=== PATIENT | female | born 1980 | race American Indian/Alaskan Native ===

== ENCOUNTER 2020-09-22 09:56 | Outpatient (REF) | payer OTHER, SELFPAY ==
--- NOTE | 2020-09-22 | MM_ITS ---
EXAMINATION: MM SCREENING DIGITAL BREAST TOMOSYNTHESIS, BILATERAL CLINICAL INFORMATION: Screening. Asymptomatic. The lifetime risk of breast cancer based on the Tyrer-Cuzick Model is 9%. COMPARISON: Mammography: 05/03/19 TECHNIQUE: Digital breast tomosynthesis is performed in both the craniocaudal and mediolateral oblique views along with computer-aided detection (CAD). Synthesized 2D images are generated from the tomosynthesis. FINDINGS: The breasts are heterogeneously dense, which may obscure small masses (ACR BI-RADS breast composition Category c). Right breast: There is an unchanged circumscribed 0.5 cm oval mass in the medial right breast likely the 3:00 position. There is unchanged global asymmetry in the central right breast middle depth. No suspicious right breast finding. Left breast: No suspicious mass. No architectural distortion. No suspicious calcification MM/MM tomosynthesis screening BI IMPRESSION: No mammographic evidence of malignancy. ASSESSMENT: BI-RADS 2: Benign RECOMMENDATION: Routine annual mammography screening. This patient's information was entered into a reminder system with a target due date for their next mammogram.
== END 2020-09-22 09:57 | disposition home or self-care (01) ==
LOC: HO.MAMMO 09:56
PROVIDERS: PCP Internal Medicine; Visit Provider Internal Medicine
DX: Z12.31 Encounter for screening mammogram for malignant neoplasm of breast (principal)
CPT/HCPCS: 77063; 77067

== ENCOUNTER 2021-10-26 11:03 | Outpatient (REF) | payer OTHER, SELFPAY ==
--- NOTE | ~2021-10-26 | MM_ITS ---
EXAMINATION: MM SCREENING DIGITAL BREAST TOMOSYNTHESIS, BILATERAL CLINICAL INFORMATION: Screening. Asymptomatic. The lifetime risk of breast cancer based on the Tyrer-Cuzick Model is 9%. COMPARISON: Mammography: 09/22/2020, 05/03/2019 (baseline) TECHNIQUE: Digital breast tomosynthesis is performed in both the craniocaudal and mediolateral oblique views along with computer-aided detection (CAD). Synthesized 2D images are generated from the tomosynthesis. FINDINGS: There are scattered areas of fibroglandular density (ACR BI-RADS breast composition Category b). There are no significant masses, abnormal calcifications, or other abnormalities. Parenchymal pattern is similar to prior studies. There is no developing density or architectural abnormality. The axilla and skin contours are unremarkable. No significant changes. MM/MM tomosynthesis screening BI IMPRESSION: No mammographic evidence of malignancy. ASSESSMENT: BI-RADS 1: Negative RECOMMENDATION: Routine annual mammography screening. This patient's information was entered into a reminder system with a target due date for their next mammogram.
== END 2021-10-26 11:04 | disposition home or self-care (01) ==
LOC: HO.MAMMO 11:03
PROVIDERS: Visit Provider Internal Medicine
DX: Z12.31 Encounter for screening mammogram for malignant neoplasm of breast (principal)
CPT/HCPCS: 77063; 77067

== ENCOUNTER 2022-06-21 10:53 | Outpatient (REF) | payer OTHER, SELFPAY ==
[2022-06-21 13:37] LABS: MANUAL DIFF FLAG NO
[2022-06-21 13:41] LABS: Basophils Absolute Auto 0.1 X10*3/uL (0.0-0.2); Basophils Percent Auto 0.7 % (0-2); Eosinophils Absolute Auto 0.3 X10*3/uL (0.0-0.4); Eosinophils Percent Auto 3.5 % (0-4); Hematocrit 32.1 % (37.0-47.0); Hemoglobin 9.9 g/dl (12.0-16.0); Imm Gran Abs Auto 0.02 X10*3/uL (0.00-0.03); Imm Gran Pct Auto 0.2 % (0.0-0.4); Lymphocytes Percent Auto 23.4 % (20-40); Mean Corpuscular HGB Conc 30.8 g/dl (31.0-35.0); Mean Corpuscular Hemoglobin 22.7 pg (27.0-33.0); Mean Corpuscular Volume 73.5 fL (80.0-98.0); Mean Platelet Volume 10.4 fL (9.4-12.3); Monocytes Absolute Auto 0.5 X10*3/uL (0.1-1.2); Monocytes Percent Auto 5.3 % (2-11); Neutrophils Absolute Auto 5.8 x10*3/uL (2.0-8.3); Neutrophils Percent Auto 66.9 % (45-73); Platelet Count 354 X10*3/uL (160-400); Red Blood Count 4.37 X10*6/uL (4.20-5.50); Red Cell Distribution Width 16.1 % (11.0-16.0); White Blood Count 8.7 X10*3/uL (4.8-10.8)
[2022-06-21 13:54] LABS: Alanine Aminotransferase 11 U/L (0-31); Albumin Level 4.2 g/dL (3.5-5.0); Alkaline Phosphatase 64 U/L (39-117); Anion Gap 15 (12-20); Aspartate Amino Transferase 11 U/L (5-31); Bilirubin Total < 0.2 mg/dL (0.0-1.0); Blood Urea Nitrogen 9 mg/dL (9-16); Calcium 9.2 mg/dL (8.4-10.2); Carbon Dioxide 24 mmol/L (22-29); Chloride 103 mmol/L (96-108); Estimated Glomerular Filt Rate > 60; Glucose Random 158 mg/dL (60-115); Potassium 4.4 mmol/L (3.3-5.1); Sodium 138 mmol/L (135-145); Total Protein 7.4 g/dL (6.5-8.0)
[2022-06-21 14:02] LABS: Creatinine Urine 21.49 mg/dL; Microalbumin Urine < 5.0 mg/L
[2022-06-21 14:07] LABS: Estimated Average Glucose 137 mg/dL; Hemoglobin A1c % 6.4 %
[2022-06-21 14:15] LABS: Ferritin 3 ng/mL (10-250); Thyroid Stimulating Hormone 1.18 uIU/mL (0.32-4.0); Vitamin D 25-OH Total 10.5 ng/mL (>30)
[2022-06-21 14:48] LABS: Vitamin B12 499 pg/mL (200-900)
[2022-06-22 12:47] LABS: Gliadin Deamidated IgA Ab 1.8 U/mL; Gliadin Deamidated IgG Ab <1.0 U/mL; Transglutaminase Ab IgG <1.0 U/mL; Transglutaminase IgA <1.0 U/mL
[2022-06-22 14:46] LABS: Immunoglobulin A 287 mg/dL (47-310)
[2022-06-28 15:17] LABS: Endomysial IgA Antibody Negative (Negative)
== END 2022-06-21 10:54 | disposition home or self-care (01) ==
LOC: HO.10HDL 10:53
PROVIDERS: Visit Provider Internal Medicine
DX: D50.8 Other iron deficiency anemias (principal); E11.9 Type 2 diabetes mellitus without complications; E78.2 Mixed hyperlipidemia; R21 Rash and other nonspecific skin eruption
CPT/HCPCS: 36415; 80053; 82043; 82306; 82607; 82728; 82784; 83036; 84443; 85025; 86231; 86258; 86364

== ENCOUNTER 2022-10-13 12:23 | Outpatient (REF) | payer OTHER, SELFPAY ==
[2022-10-13 13:51] LABS: MANUAL DIFF FLAG NO
[2022-10-13 13:58] LABS: Basophils Percent Auto 0.4 % (0-2); Eosinophils Absolute Auto 0.2 X10*3/uL (0.0-0.4); Eosinophils Percent Auto 2.2 % (0-4); Hematocrit 30.9 % (37.0-47.0); Hemoglobin 9.4 g/dl (12.0-16.0); Imm Gran Abs Auto 0.02 X10*3/uL (0.00-0.03); Imm Gran Pct Auto 0.2 % (0.0-0.4); Lymphocytes Absolute Auto 2.4 X10*3/uL (1.2-4.9); Lymphocytes Percent Auto 28.7 % (20-40); Mean Corpuscular HGB Conc 30.4 g/dl (31.0-35.0); Mean Corpuscular Volume 72.4 fL (80.0-98.0); Mean Platelet Volume 10.1 fL (9.4-12.3); Monocytes Absolute Auto 0.4 X10*3/uL (0.1-1.2); Monocytes Percent Auto 5.2 % (2-11); Neutrophils Absolute Auto 5.2 x10*3/uL (2.0-8.3); Neutrophils Percent Auto 63.3 % (45-73); Platelet Count 473 X10*3/uL (160-400); Red Blood Count 4.27 X10*6/uL (4.20-5.50); Red Cell Distribution Width 16.1 % (11.0-16.0); White Blood Count 8.2 X10*3/uL (4.8-10.8)
[2022-10-13 14:12] LABS: Estimated Average Glucose 128 mg/dL; Hemoglobin A1c % 6.1 %
[2022-10-13 15:26] LABS: Alanine Aminotransferase 11 U/L (0-31); Albumin Level 4.3 g/dL (3.5-5.0); Alkaline Phosphatase 55 U/L (39-117); Anion Gap 13 (12-20); Aspartate Amino Transferase 12 U/L (5-31); Bilirubin Total 0.2 mg/dL (0.0-1.0); Blood Urea Nitrogen 11 mg/dL (9-16); Calcium 9.5 mg/dL (8.4-10.2); Carbon Dioxide 26 mmol/L (22-29); Chloride 104 mmol/L (96-108); Cholesterol 175 mg/dL; Estimated Glomerular Filt Rate > 60; Ferritin 5 ng/mL (10-250); Glucose Random 110 mg/dL (60-115); HDL Cholesterol 50 mg/dL; LDL Cholesterol Calculated 105 mg/dl; Potassium 4.5 mmol/L (3.3-5.1); Sodium 138 mmol/L (135-145); Total Protein 7.3 g/dL (6.5-8.0); Triglycerides 104 mg/dL
== END 2022-10-13 12:24 | disposition home or self-care (01) ==
LOC: HO.10HDL 12:23
PROVIDERS: Visit Provider Internal Medicine
DX: D50.8 Other iron deficiency anemias (principal); E11.9 Type 2 diabetes mellitus without complications; E78.2 Mixed hyperlipidemia
CPT/HCPCS: 36415; 80053; 80061; 82728; 83036; 85025

== ENCOUNTER 2022-11-24 15:32 | Outpatient (REF) | payer OTHER, SELFPAY ==
--- NOTE | ~2022-11-24 | MM_ITS ---
EXAMINATION: MM SCREENING DIGITAL BREAST TOMOSYNTHESIS, BILATERAL CLINICAL INFORMATION: Screening. Asymptomatic. The lifetime risk of breast cancer based on the Tyrer-Cuzick Model is 6.9%. COMPARISON: Mammography: 10/26/2021 and studies dating back to 05/03/2019. TECHNIQUE: Digital breast tomosynthesis is performed in both the craniocaudal and mediolateral oblique views along with computer-aided detection (CAD). Synthesized 2D images are generated from the tomosynthesis. FINDINGS: The breasts are heterogeneously dense, which may obscure small masses (ACR BI-RADS breast composition Category c). There is a stable parenchymal pattern of the right breast. Within the anterior medial aspect of the left breast there is an oval density measuring approximately 1.3 x 0.8 cm in size for which spot compression views and possibly ultrasound is recommended. MM/MM tomosynthesis screening BI IMPRESSION: Left breast density for further evaluation. ASSESSMENT: BI-RADS 0: Incomplete - Need Additional Imaging Evaluation RECOMMENDATION: 1. Additional views of the left breast. 2. Targeted ultrasound if warranted after review of the additional views. 3. Radiology department staff will contact the patient for additional imaging. This patient's information was entered into a reminder system with a target due date for their next mammogram.
== END 2022-11-24 15:33 | disposition home or self-care (01) ==
LOC: HO.MAMMO 15:32
PROVIDERS: PCP Internal Medicine; Visit Provider Internal Medicine
DX: Z12.31 Encounter for screening mammogram for malignant neoplasm of breast (principal)
CPT/HCPCS: 77063; 77067

== ENCOUNTER 2022-12-19 14:53 | Outpatient (REF) | payer OTHER, SELFPAY ==
--- NOTE | ~2022-12-19 | MM_ITS ---
EXAMINATION: MM DIAGNOSTIC DIGITAL BREAST TOMOSYNTHESIS, LEFT US DIAGNOSTIC ULTRASOUND BREAST, LEFT CLINICAL INFORMATION: Recall from screening for oval density anterior left breast. COMPARISON: Mammography: 11/24/2022, 10/26/2021, 09/22/2020 TECHNIQUE: Digital breast tomosynthesis is performed. 2D images are generated from the tomosynthesis. The following views are obtained: Spot CC, spot MLO Ultrasound left breast is targeted to the central breast interrogated from various angles. Grayscale imaging and color Doppler are performed without and with harmonics. FINDINGS: There are scattered areas of fibroglandular density (ACR BI-RADS breast composition Category b). The additional views confirm a smooth oval nodule anterior central breast with partly and partly obscured margins measuring approximately 1 cm. Ultrasound demonstrates a simple cyst central anterior breast measuring approximately 1.0 x 0.7 cm. This cyst is anechoic with circumscribed margins and increased through-transmission of sound. No associated color flow. Results are discussed with the patient at time of visit. MM/MM tomosynthesis added views L IMPRESSION: Simple cyst anterior left breast corresponding to finding on recent mammography. ASSESSMENT: BI-RADS 2: Benign RECOMMENDATION: Routine annual mammography screening. This patient's information was entered into a reminder system with a target due date for their next mammogram.
== END 2022-12-19 14:54 | disposition home or self-care (01) ==
LOC: HO.MAMMO 14:53
PROVIDERS: PCP Internal Medicine; Visit Provider Internal Medicine
DX: R92.2 Inconclusive mammogram (principal)
CPT/HCPCS: 76642; 77061; 77065

== ENCOUNTER 2024-01-16 11:00 | Outpatient (RCR) | payer OTHER, SELFPAY | END 2024-01-26 07:35 | disposition home or self-care (01) | LOC: HO.PT 11:00 | PROVIDERS: PCP Internal Medicine; Visit Provider Internal Medicine | DX: M72.2 Plantar fascial fibromatosis (principal) | CPT/HCPCS: 97110; 97112; 97140; 97161 ==

== ENCOUNTER 2024-02-12 15:20 | Outpatient (REF) | payer OTHER, SELFPAY | END 2024-02-12 15:21 | disposition home or self-care (01) | LOC: HO.MAMMO 15:20 | PROVIDERS: PCP Internal Medicine; Visit Provider Internal Medicine | DX: Z12.31 Encounter for screening mammogram for malignant neoplasm of breast (principal) | CPT/HCPCS: 77063; 77067 ==

== ENCOUNTER → 2024-02-12 15:30 | Outpatient (BNV) | payer OTHER, SELFPAY | PROVIDERS: PCP Internal Medicine; Visit Provider Radiology Diagnostic Radiology | DX: Z12.31 Encounter for screening mammogram for malignant neoplasm of breast (principal) | CPT/HCPCS: 77063; 77067 ==